=== PATIENT | male | born 1975 | race African-American/Black ===

== ENCOUNTER 2021-11-20 19:50 | Emergency (ER) | payer SELFPAY ==
[~2021-11-20] VITALS: Ht 182.9 cm; Wt 68.0 kg
--- NOTE | 2021-11-20 20:21 | NUR ---
[facility], WAS FOUND UNCONSCIOUS, GIVEN 1MG IV NARCAN 4MG ZOFRAN AND GAINED CONSCIOUSNESS. PATIENT ALERT AND ORIENTED X3. AMBULATORY WITH NON LABORED BREATHING.
[2021-11-20] MEDS ORDERED: NALOXONE PREFILLED SYRINGE 2 MG/2 ML SYRINGE ONE (20:45)
--- NOTE | 2021-11-20 20:59 | NUR ---
PER ER VERBAL ORDER 1 MG NARCAN IVP, ORDER CARRIED OUT
[2021-11-20] MEDS ORDERED: NALOXONE HCL 0.4 MG/ML AMPUL IV ONE (21:00)
[2021-11-20] MEDS ORDERED: IV NS 0.9% 1,000 ML IV ONE (21:00)
--- NOTE | 2021-11-20 21:10 | NUR ---
PT KEEPS REMOVING N/C, RISK AND BENEFITS EXAMPLE X 2. Addendum: 11/20/21 at 2139 by NANCY PT KEEPS REMOVING N/C, RISK AND BENEFITS EXPLAINED X 2.
[2021-11-20 21:11] VITALS: BP 134/70
--- NOTE | 2021-11-20 21:15 | NUR ---
PT REFUSED BLOOD DRAW, RISK AND BENEFITS EXPLAINED X 2 .
[2021-11-20] MEDS ORDERED: NALO4SPR NS (21:34)
--- NOTE | 2021-11-20 21:38 | NUR ---
Patient does not wish to proceed with medical care recommended by Dr. Moore. Patient given information related to possible complications, up to and including , which could occur as a result of leaving the hospital at this time. Patient verbalizes understanding of risks involved due to leaving against medical advice. Patient has signed AMA form.
== END 2021-11-20 21:40 | disposition left against medical advice (07) ==
LOC: ER 19:57
DX: T40.2X1A Poisoning by other opioids, accidental (unintentional), initial encounter (principal); R40.4 Transient alteration of awareness; Y92.89 Other specified places as the place of occurrence of the external cause
CPT/HCPCS: 96360; 99291; J2310; J7030